=== PATIENT | female | born 1985 | race Caucasian/White ===

== ENCOUNTER 2016-12-22 08:50 | Outpatient (CLI) | payer OTHER ==
--- NOTE | 2016-12-22 10:05 | DIAGNOSTIC IMAGING REPORT ---
PROCEDURE: XR CERVICAL SPINE 2 OR 3 VIEW INDICATION: BACK PX TECHNIQUE: Three views. COMPARISON: None. FINDINGS: Osseous structures and disc spaces are normal. No evidence of an acute process or fracture. IMPRESSION: 1. Negative cervical spine.
== END 2016-12-22 23:00 ==
LOC: XR SRH 08:50
DX: M54.12 Radiculopathy, cervical region (principal); M54.5 Low back pain